=== PATIENT | male | born 1975 | race Caucasian/White ===

== ENCOUNTER 2017-07-29 10:40 | Emergency (ER) | payer BC, OTHER ==
[~2017-07-29] VITALS: Ht 172.7 cm; Wt 120.0 kg
[~2017-07-29 10:40] MED LIST: MULT-506 PO
[2017-07-29 10:42] VITALS: TEMP 36.8; Ht 172.7 cm; Wt 120.0 kg
[2017-07-29 11:15] VITALS: O2SAT 94
[2017-07-29 11:21] LABS: BASO % 0.2 %; BASO ABS # 0.02 K/uL (0-0.2); EOS % 1.7 %; EOS ABS # 0.16 K/uL (0-0.5); HEMOGLOBIN 16.4 g/dL (14.0-18.0); IG# 0.04 K/uL (0.00-0.02); LYMPH % 30.2 %; LYMPH ABS # 2.84 K/uL (1.2-3.4); MEAN CELL VOLUME 89.1 fL (80-100); MEAN CORPUSCULAR HEMOGLOBIN 32.5 pg (25-34); MEAN CORPUSCULAR HGB CONC 36.4 g/dl (32-36); MEAN PLATELET VOLUME 9.7 fL (7.4-10.4); MONO ABS # 0.94 K/uL (0.11-0.59); NEUT % 57.5 %; NEUT ABS # 5.41 K/uL (1.4-6.5); PLATELET COUNT 208 K/uL (130-400); RED CELL DISTRIBUTION WIDTH CV 13.6 % (11.5-14.5); RED CELL DISTRIBUTION WIDTH SD 44.2 fL (36.4-46.3); WHITE BLOOD COUNT 9.41 K/uL (4.8-10.8)
[2017-07-29] MEDS ORDERED: XRL10 PO (11:26)
--- NOTE | 2017-07-29 11:28 | EMERGENCY ROOM VISIT NOTE ---
History Report prepared by Lisy: Erica Bellamy Under the Supervision of: Dr. Dexter Burt D.O. First contact with patient: 10:53 Chief Complaint: CHEST PAIN Stated Complaint: CHEST PAIN Nursing Triage Summary: pt reports chest pain feels like pinch in center of chest started 45 minutes ago had ekg done at work sent here for eval. denies any n/v/or radiating pain History of Present Illness The patient is a 41 year old male who presents to the Emergency Room with complaints of an episode of chest pain occurring 45 minutes [employer]. The patient was sitting in a meeting when he suddenly developed "hot, sharp pain" in the center of his chest. He states that he began to feel very hot and his face felt like it was burning. He was just sitting in a chair when this happened and denies exerting himself. This pain lasted for about 2-3 minutes and then resolved. Nothing made his pain worse. He denies any symptoms at this time. The patient denies shortness of breath, nausea, vomiting, diarrhea, and pain or swelling in his legs. He denies black or bloody stools. He has never had a stress test or cardiac catheterization. The patient takes Xarelto for Factor V. He has had DVTs in the past but denies any personal history of PEs. Source of History: patient Onset: 45 minutes [employer] Position: chest Quality: sharp, other (hot) Timing: other (episode) Modifying Factors (Worsening): other (none) Modifying Factors (Relieving): other (time) Associated Symptoms: No SOB, No nausea, No vomiting, No melena, No hematochezia, No diarrhea Review of Systems See HPI for pertinent positives & negatives. A total of 10 systems reviewed and were otherwise negative. Past Medical & Surgical Medical Problems: (1) DVT (deep venous thrombosis) (2) Factor V deficiency Family History Cancer Diabetes mellitus Heart disease Social History Smoking Status: Never Smoker Smokeless Tobacco Use: No Alcohol Use: occasionally Drug Use: none Marital Status: Housing Status: lives with family Occupation Status: employed Current/Historical Medications Scheduled Rivaroxaban (Xarelto), 10 MG PO DAILY Allergies Coded Allergies: No Known Allergies (Unverified , 07/29/17) Physical Exam Vital Signs Date Time Temp Pulse Resp B/P (MAP) Pulse Ox O2 Delivery O2 Flow Rate FiO2 07/29/17 13:41 51 22 141/81 94 07/29/17 12:33 54 07/29/17 12:27 56 24 103/62 95 Room Air 07/29/17 11:15 94 Room Air 07/29/17 10:42 36.8 73 18 137/85 92 Room Air Physical Exam GENERAL: Patient is awake, alert, and in no acute distress. Patient is resting comfortably and showing no signs of anxiety EYES: The conjunctivae are clear. The pupils are round and reactive. EARS, NOSE, MOUTH AND THROAT: The nose is without any evidence of any deformity. Mucous membranes are moist tongue is midline NECK: The neck is nontender and supple. RESPIRATORY: Normal respiratory effort is noted there is no evidence of wheezing rhonchi or rales CARDIOVASCULAR: Regular rate and rhythm noted there no murmurs rubs or gallops normal S1 normal S2 GASTROINTESTINAL: The abdomen is soft. Bowel sounds are present in all quadrants. Abdomen is nontender MUSCULOSKELETAL/EXTREMITIES: There is no evidence of gross deformity full range of motion is noted in the hips and shoulders SKIN: There is no obvious evidence of any rash. There are no petechiae, pallor or cyanosis noted. NEUROLOGIC: Patient is awake alert and oriented x3 Medical Decision & Procedures ER Provider Diagnostic Interpretation: Radiology results as stated below per my review and radiologist interpretation: CHEST ONE VIEW PORTABLE CLINICAL HISTORY: Atypical chest pain COMPARISON STUDY: No previous studies for comparison. FINDINGS: The heart is normal in size. There is no failure. There is no focal pulmonary consolidation. There is slight interstitial prominence, a finding which is likely accentuated due to the patient's large body habitus. There are no pleural effusions.[ IMPRESSION: AP portable study. No acute findings. Electronically signed by: Moris Gong M.D. 07/29/2017 11:40 AM Dictated Date/Time: 07/29/2017 11:40 AM Laboratory Results 07/29/17 11:15 Red Blood Count 5.05, Mean Corpuscular Volume 89.1, Mean Corpuscular Hemoglobin 32.5, Mean Corpuscular Hemoglobin Concent 36.4, Mean Platelet Volume 9.7, Neutrophils (%) (Auto) 57.5, Lymphocytes (%) (Auto) 30.2, Monocytes (%) (Auto) 10.0, Eosinophils (%) (Auto) 1.7, Basophils (%) (Auto) 0.2, Neutrophils # (Auto ) 5.41, Lymphocytes # (Auto) 2.84, Monocytes # (Auto) 0.94, Eosinophils # (Auto ) 0.16, Basophils # (Auto) 0.02 07/29/17 11:15 Test 07/29/17 11:15 07/29/17 11:19 07/29/17 11:46 White Blood Count 9.41 K/uL (4.8-10.8) Red Blood Count 5.05 M/uL (4.7-6.1) Hemoglobin 16.4 g/dL (14.0-18.0) Hematocrit 45.0 % (42-52) Mean Corpuscular Volume 89.1 fL (80-100) Mean Corpuscular Hemoglobin 32.5 pg (25-34) Mean Corpuscular Hemoglobin Concent 36.4 g/dl (32-36) Platelet Count 208 K/uL (130-400) Mean Platelet Volume 9.7 fL (7.4-10.4) Neutrophils (%) (Auto) 57.5 % Lymphocytes (%) (Auto) 30.2 % Monocytes (%) (Auto) 10.0 % Eosinophils (%) (Auto) 1.7 % Basophils (%) (Auto) 0.2 % Neutrophils # (Auto) 5.41 K/uL (1.4-6.5) Lymphocytes # (Auto) 2.84 K/uL (1.2-3.4) Monocytes # (Auto) 0.94 K/uL (0.11-0.59) Eosinophils # (Auto) 0.16 K/uL (0-0.5) Basophils # (Auto) 0.02 K/uL (0-0.2) RDW Standard Deviation 44.2 fL (36.4-46.3) RDW Coefficient of Variation 13.6 % (11.5-14.5) Immature Granulocyte % (Auto) 0.4 % Immature Granulocyte # (Auto) 0.04 K/uL (0.00-0.02) Anion Gap 7.0 mmol/L (3-11) Est Creatinine Clear Calc Drug Dose 111.5 ml/min Estimated GFR () 95.4 Estimated GFR (Non- 82.3 BUN/Creatinine Ratio 11.2 (10-20) Calcium Level 8.9 mg/dl (8.5-10.1) Total Bilirubin 0.5 mg/dl (0.2-1) Direct Bilirubin 0.1 mg/dl (0-0.2) Aspartate Amino Transf (AST/SGOT) 22 U/L (15-37) Alanine Aminotransferase (ALT/SGPT) 34 U/L (12-78) Alkaline Phosphatase 63 U/L (45-117) Troponin I < 0.015 ng/ml (0-0.045) Total Protein 8.3 gm/dl (6.4-8.2) Albumin 4.1 gm/dl (3.4-5.0) Lipase 107 U/L (73-393) Bedside D-Dimer 119 ng/mlFEU (0-450) Prothrombin Time 11.1 SECONDS (9.0-12.0) Prothromb Time International Ratio 1.1 (0.9-1.1) Activated Partial Thromboplast Time 28.5 SECONDS (21.0-31.0) Partial Thromboplastin Ratio 1.1 Laboratory results per my review. ECG Per My Interpretation Indication: chest pain Rate (beats per minute): 67 Rhythm: normal sinus Findings: no acute ischemic change, no ectopy Comparison ECG Date: no prior available ED Course 1101: The patient was evaluated in room C11B. A complete history and physical examination were performed. 1329: I reassessed the patient at this time. He is feeling better and resting comfortably. I discussed the results and treatment plan with the patient. I answered all pertaining questions that he had. He expressed understanding and verbalized agreement. The patient will be discharged home. Medical Decision Prior records/ancillary studies reviewed. Triage Nursing notes reviewed. The patient's history was concerning for chest pain. Differential diagnosis: Etiologies such as cardiac ischemia, aortic dissection, pulmonary embolism, pneumonia, pneumothorax, musculoskeletal, infections, pericarditis, myocarditis , esophageal rupture, gastrointestinal, as well as others were entertained. The patient is a 41-year-old male who presented to the emergency department for chest pain. The patient describes an episode of sharp chest pain which was very short lasting. It was not exertional. It was not associated with syncope or dizziness. The patient has a history of factor V Leiden as well as currently takes anticoagulation. I discussed patient's laboratory and radiographic studies with him. I also discussed the limitations of the emergency department workup for chest pain with him. At this time I do not feel this represents an acute coronary syndrome. His d-dimer is negative and I do not feel this represents a pulmonary embolism. He was encouraged to rest and avoid any strenuous activity. He was also encouraged to continue all medications as prescribed. Otherwise he was encouraged to follow-up with his family doctor as soon as possible but return the emergency department immediately if symptoms change worsen or the need arises. Medication Reconcilliation Current Medication List: was personally reviewed by me Blood Pressure Screening Patient's blood pressure: Elevated blood pressure Blood pressure disposition: Elevated BP felt to be situational Impression Primary Impression: Chest pain Scribe Attestation The scribe's documentation has been prepared under my direction and personally reviewed by me in its entirety. I confirm that the note above accurately reflects all work, treatment, procedures, and medical decision making performed by me. Departure Information Dispostion Home / Self-Care Referrals No Doctor, Assigned (PCP) Yolanda Jefferson, D.O. Forms Call Back Authorization, HOME CARE DOCUMENTATION FORM, IMPORTANT VISIT INFORMATION Patient Instructions ED Chest Pain Atypical Unkn Cause, My [facility] Additional Instructions Continue all medications as prescribed. Follow-up with your family doctor for reevaluation. You may require other tests such as a stress test or an echocardiogram to further evaluate the cause your symptoms. Problem Qualifiers Primary Impression: Chest pain Chest pain type: unspecified Qualified Codes: R07.9 - Chest pain, unspecified
[2017-07-29 11:40] LABS: ALBUMIN 4.1 gm/dl (3.4-5.0); ALT/SGPT 34 U/L (12-78); BLOOD UREA NITROGEN 13 mg/dl (7-18); CALCIUM 8.9 mg/dl (8.5-10.1); CARBON DIOXIDE 24 mmol/L (21-32); CREATININE 1.12 mg/dl (0.60-1.40); GLUCOSE 90 mg/dl (70-99); LIPASE 107 U/L (73-393); POTASSIUM 4.1 mmol/L (3.5-5.1); SODIUM 135 mmol/L (136-145)
--- NOTE | 2017-07-29 11:42 | DIAGNOSTIC IMAGING REPORT ---
CHEST ONE VIEW PORTABLE CLINICAL HISTORY: Atypical chest pain COMPARISON STUDY: No previous studies for comparison. FINDINGS: The heart is normal in size. There is no failure. There is no focal pulmonary consolidation. There is slight interstitial prominence, a finding which is likely accentuated due to the patient's large body habitus. There are no pleural effusions.[ IMPRESSION: AP portable study. No acute findings. Electronically signed by: Moris Gong M.D. 07/29/2017 11:40 AM Dictated Date/Time: 07/29/2017 11:40 AM
[2017-07-29 11:45] LABS: ALKALINE PHOSPHATASE 63 U/L (45-117); AST/SGOT 22 U/L (15-37); TOTAL PROTEIN 8.3 gm/dl (6.4-8.2)
[2017-07-29 13:32] LABS: INR 1.1 (0.9-1.1); PTT PATIENT 28.5 SECONDS (21.0-31.0)
[2017-07-29 13:41] VITALS: BP 141/81; PULSE 51; O2SAT 94
== END 2017-07-29 13:41 | disposition home or self-care (01) ==
LOC: C.EDB 10:42 → C.EDC 13:41
DX: R07.9 Chest pain, unspecified (principal); R03.0 Elevated blood-pressure reading, without diagnosis of hypertension; D68.2 Hereditary deficiency of other clotting factors; Z79.01 Long term (current) use of anticoagulants; Z86.718 Personal history of other venous thrombosis and embolism; Z83.3 Family history of diabetes mellitus; Z82.49 Family history of ischemic heart disease and other diseases of the circulatory system